=== PATIENT | male | born 1965 | race Caucasian/White ===

== ENCOUNTER 2017-02-19 21:33 | Emergency (ER) | payer SELFPAY ==
[~2017-02-19] VITALS: Ht 177.8 cm; Wt 70.3 kg
[~2017-02-19 21:33] MED LIST: NKM
[2017-02-19 21:42] VITALS: BP 135/98
[2017-02-19] MEDS ORDERED: HYDROmorphone 1mg/ml Carpuject IM ONE (22:00)
[2017-02-19] MEDS ORDERED: Norco 5mg/325mg tab ORAL ONE ×2 (22:15→23:15)
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
[2017-02-19 23:00] VITALS: BP 134/85
[2017-02-19] MEDS ORDERED: HYDROmorphone 1mg/ml Carpuject IVP ONE (23:30)
[2017-02-19 23:57] LABS: MEAN CORPUSCULAR HEMOGLOBIN 35.1 PG (27.0-31.0); MEAN CORPUSCULAR HGB CONC 35.3 G/DL (32.0-36.0); MEAN CORPUSCULAR VOLUME 99 FL (80-99); MEAN PLATELET VOLUME 8.9 FL (6.5-10.1); PLATELET COUNT 237 K/UL (150-450); RED BLOOD COUNT 4.66 M/UL (4.70-6.10); RED CELL DISTRIBUTION WIDTH 10.9 % (11.6-14.8); WHITE BLOOD COUNT 17.7 K/UL (4.8-10.8)
[2017-02-20 00:06] LABS: INR 0.9 (0.9-1.1); PROTHROMBIN TIME 9.4 SEC (9.30-11.50)
[2017-02-20 00:10] LABS: ALCOHOL < 10 mg/dL; ANION GAP 11 (5-15); CALCIUM 9.9 mg/dL (8.6-10.2); CARBON DIOXIDE 29 mEQ/L (20-30); CHLORIDE 103 mEQ/L (98-107); CREATININE 1.1 mg/dL (0.7-1.2); GLOMERULAR FILTRATION RATE > 60 mL/min (>60); HEMOLYSIS 45; POTASSIUM 4.3 mEQ/L (3.4-4.9); SODIUM 143 mEQ/L (135-145)
[2017-02-20 00:18] VITALS: BP 134/85
[2017-02-20] MEDS ORDERED: HYDROmorphone 1mg/ml Carpuject IVP ONE (01:00)
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
--- NOTE | 2017-02-20 08:33 | Diagnostic Imaging Report ---
Indication: Trauma Technique: Continuous helical CT scanning of the head was performed without intravenous contrast material. Axial and coronal 5 mm sections were generated. Dose: Total Dose Length Product - DLP [address] Dose Index - CTDIvol(s) 70.38 mGy. Comparison:None. Findings: The ventricular system is normal in size and configuration. There is no shift of midline structures. No abnormal extra-axial fluid collections are noted. There is no evidence of intracerebral bleeding. No other abnormal high or low density areas are noted within the brain. There is an orbital floor fracture on the left with soft tissue swelling (see CT facial). Impression: Left orbital floor fracture... see CT facial). Otherwise normal CT scan of the head without contrast material. The above report is concordant with preliminary reading by [employer] . The CT scanner at [facility] is accredited by the [employer] and the scans are performed using protocols designed to limit radiation exposure to as low as reasonably achievable to attain images of sufficient resolution adequate for diagnostic evaluation.
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
== END 2017-02-20 00:18 | disposition short-term general hospital (02) ==
LOC: EDBD 21:33 → EMR 21:48
DX: S02.32XA Fracture of orbital floor, left side, initial encounter for closed fracture (principal); S00.03XA Contusion of scalp, initial encounter; S00.83XA Contusion of other part of head, initial encounter; S22.41XA Multiple fractures of ribs, right side, initial encounter for closed fracture; S27.0XXA Traumatic pneumothorax, initial encounter; S20.222A Contusion of left back wall of thorax, initial encounter; S20.221A Contusion of right back wall of thorax, initial encounter; S00.212A Abrasion of left eyelid and periocular area, initial encounter; Y04.2XXA Assault by strike against or bumped into by another person, initial encounter; Y92.511 Restaurant or cafe as the place of occurrence of the external cause; Y99.0 Civilian activity done for income or pay; J34.2 Deviated nasal septum; K01.1 Impacted teeth
CPT/HCPCS: 36415; 70450; 70486; 71250; 80048; 85025; 85610; 85730; 96374; 96375; 99285; G0480; J1170; 80329